=== PATIENT | female | born 1965 | race Caucasian/White ===

== ENCOUNTER 2018-02-03 12:39 | Emergency (ER) | payer OTHER ==
[~2018-02-03] VITALS: Ht 167.6 cm; Wt 65.0 kg
[2018-02-03 13:02] VITALS: BP 201/102; PULSE 106; RESP 14; TEMP 98.6; O2SAT 100
[2018-02-03] MEDS ORDERED: AUGM875T3 PO (14:08)
--- NOTE | 2018-02-03 14:08 | PD ---
HPI . Cat bite Chief Complaint: Bite or Sting Time Seen by Provider: 13:16 Travel History International Travel<30 days: No Contact w/Intl Traveler<30days: No Traveled to known affect area: No History of Present Illness HPI This patient presents with chief complaint of Bite. Onset was yesterday. It is much worse today. She was bitten by stray cat but it is unknown. She has been feeding it. She does not know the date of her last tetanus. It has been at least 5 years ago. She is allergic to Cipro and sulfa antibiotics. Pain is rated 5/10 with no modifying factors. PFSH Past Medical History Medical History: Denies Significant Hx ?: Not Tubal Ligation: Yes Past Surgical History Tonsillectomy: Yes Social History Alcohol Use: Yes (1-2 glasses of wine per night) Tobacco Use: Yes Substance Use: No Allergies-Medications (Allergen,Severity, Reaction): Coded Allergies: Sulfa (Sulfonamide Antibiotics) (Verified Allergy, Severe, HIVES, 02/03/18) ciprofloxacin (Verified Allergy, Severe, HIVES, 02/03/18) Reported Meds & Prescriptions Reported Meds & Active Scripts Active No Active Prescriptions or Reported Medications Review of Systems Except as stated in HPI: all other systems reviewed are Neg Physical Exam Narrative GENERAL: Awake and alert and in no acute distress. SKIN: Warm and dry. She has erythema, warmth, swelling and bruising of the right forearm. HEAD: Normocephalic/atraumatic. EYES: Pupils are equal. Extraocular movements are intact. NECK: Normal range of motion. CARDIOVASCULAR: Regular rate and rhythm. RESPIRATORY: Nonlabored respirations. MUSCULOSKELETAL: Atraumatic. NEUROLOGICAL: Nonfocal. PSYCHIATRIC: Appropriate mood and affect. Data Data Last Documented VS Vital Signs Date Time Temp Pulse Resp B/P (MAP) Pulse Ox O2 Delivery O2 Flow Rate FiO2 02/03/18 13:02 98.6 106 14 201/102 (135) 100 Orders Orders Tetanus/Diphtheria Tox Adult (Tetanus/Di (02/03/18 14:15) Amoxicil-Clavulanate (Augmentin) (02/03/18 14:15) MDM Medical Decision Making Medical Screen Exam Complete: Yes Emergency Medical Condition: Yes Differential Diagnosis My differential diagnosis includes but is not limited to localized wound infection, cellulitis, abscess Narrative Course This patient presents with cellulitis of her right forearm status post a cat bite which occurred yesterday. Tetanus will be updated. She will be discharged on Augmentin. Diagnosis Primary Impression: Cat bite of forearm Qualified Codes: S51.851A - Open bite of right forearm, initial encounter; W55.01XA - Bitten by cat, initial encounter Patient Instructions: Animal Bite (DC), General Instructions Med/Other Pt SpecificInfo: Prescription(s) given Scripts Amoxicillin-Clavulanate (Augmentin) 875-125 Mg Tab 1 TAB PO BID for Infection, #20 TAB 0 Refills Prov: Rashida Fried MD 02/03/18 Disposition: 01 DISCHARGE HOME Condition: Stable Rashida Fried MD February 03, 2018 14:08
[2018-02-03] MEDS ORDERED: AMOXICILLIN/CLAVULANATE K 875 MG TAB PO ONE (14:15)
[2018-02-03] MEDS ORDERED: TETANUS/DIPHTHERIA TOXOID ADULT 0.5 ML VIAL IM ONE (14:15)
[2018-02-03 14:41] VITALS: BP 185/117; PULSE 94
== END 2018-02-03 14:44 | disposition home or self-care (01) ==
LOC: NEPD 12:39
DX: S51.851A Open bite of right forearm, initial encounter (principal); W55.01XA Bitten by cat, initial encounter; Z23 Encounter for immunization; Z72.0 Tobacco use; Z88.1 Allergy status to other antibiotic agents; Z88.2 Allergy status to sulfonamides
CPT/HCPCS: 90471; 90714